=== PATIENT | male | born 1965 | race Caucasian/White ===

== ENCOUNTER → 2018-01-25 | Outpatient (CLI) | payer BC ==
--- NOTE | 2018-01-25 13:31 | DIAGNOSTIC IMAGING REPORT ---
FLUOROSCOPIC SNIFF TEST CLINICAL HISTORY: Diaphragmatic paralysis. COMPARISON STUDY: No priors. Fluoroscopy time: 0.1 minutes. FINDINGS: A fluoroscopic cine loop of the chest is presented. There is elevation of the right hemidiaphragm with associated right basilar atelectasis. There is normal excursion of left hemidiaphragm. There is paradoxical excursion of the right hemidiaphragm consistent with diaphragmatic paralysis. 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 Electronically signed by: Sarwat Colon M.D. 01/25/2018 1:30 PM Dictated Date/Time: 01/25/2018 1:29 PM
== END | disposition home or self-care (01) ==
LOC: C.RAD 12:37
PROVIDERS: ATTEND Internal Medicine Pulmonary Disease
DX: J98.6 Disorders of diaphragm (principal)